=== PATIENT | female | born 1940 | race Caucasian/White ===

== ENCOUNTER → 2016-05-14 | Outpatient (CLI) | payer MEDICARE ==
[2016-05-14 13:53] LABS: ALANINE AMINOTRANSFERASE 57 U/L (9-52); ALKALINE PHOSPHATASE 132 U/L (38-126); ANION GAP 14 (5-19); ASPARTATE AMINO TRANSFERASE 55 U/L (14-36); BILIRUBIN,TOTAL 0.7 mg/dL (0.2-1.3); BLOOD UREA NITROGEN 11 mg/dL (7-20); CALCIUM 9.6 mg/dL (8.4-10.2); CARBON DIOXIDE 26 mmol/L (22-30); CHLORIDE 101 mmol/L (98-107); CREATININE RESULT 0.91 mg/dL (0.52-1.25); Direct HDL 35 mg/dL (>40); GLUCOSE 149 mg/dL (75-110); POTASSIUM 4.2 mmol/L (3.6-5.0); SODIUM 140.5 mmol/L (137-145); TOTAL PROTEIN 7.7 g/dL (6.3-8.2); TRIGLYCERIDES 207 mg/dL (<150)
[2016-05-14 14:04] LABS: DIRECT LDL 158 mg/dL (<100)
[2016-05-14 14:06] LABS: VLDL CHOLESTEROL 41.4 mg/dL (10-31)
== END ==
LOC: OD 12:48
PROVIDERS: ATTEND Nurse Practitioner
DX: K21.9 Gastro-esophageal reflux disease without esophagitis (principal); I10 Essential (primary) hypertension; E78.5 Hyperlipidemia, unspecified; E11.9 Type 2 diabetes mellitus without complications; Z79.899 Other long term (current) drug therapy
CPT/HCPCS: 36415; 80053; 80061; 83036

== ENCOUNTER 2018-03-29 11:25 | Inpatient (IN) | payer MEDICARE ==
--- NOTE | 2018-03-29 11:31 | ER Document Report ---
ED Medical Screen (RME) - General Stated Complaint: STROKE LIKE SYMPTOMS Time Seen by Provider: 03/29/18 11:28 Notes: 78-year-old female patient brought the emergency room for mental status changes with slurred speech that started 2 days ago. I have greeted and performed a rapid initial assessment of this patient. A comprehensive ED assessment and evaluation of the patient, analysis of test results and completion of the medical decision making process will be conducted by additional ED providers. TRAVEL OUTSIDE OF THE [place] IN LAST 30 DAYS: No Doctor's Discharge - Discharge Referrals: BEBE STEEN NP [Primary Care Provider] - Follow up as needed
--- NOTE | 2018-03-29 12:16 | RADIOLOGY REPORT (SQ) ---
EXAM DESCRIPTION: CT HEAD WITHOUT COMPLETED DATE/TIME: 03/29/2018 11:58 am REASON FOR STUDY: Altered mental status, COMPARISON: 10/15/2008. TECHNIQUE: Axial images acquired through the brain without intravenous contrast. Images reviewed wi th bone, brain and subdural windows. Additional sagittal and coronal reconstructions were generated. Images stored on PACS. All CT scanners at this facility use dose modulation, iterative reconstruction, and/or weight based d osing when appropriate to reduce radiation dose to as low as reasonably achievable (ALARA). [facility]: Dose Right [facility]: CareDose [facility]: Dose Right [facility]: Teradose 4D [facility]: Smart hoozin RADIATION DOSE: CT Rad equipment meets quality standard of care and radiation dose reduction techniq ues were employed. CTDIvol: 53.2 mGy. DLP: 1017 mGy-cm. mGy. LIMITATIONS: None. FINDINGS: VENTRICLES: Prominent. CEREBRUM: No masses. No hemorrhage. No midline shift. Areas of low density in the white matter mos t likely due to chronic micro-vascular ischemic change. No evidence for acute infarction. CEREBELLUM: No masses. No hemorrhage. No alteration of density. No evidence for acute infarction. EXTRAAXIAL SPACES: Mild age-related involutional change. No fluid collections. No masses. ORBITS AND GLOBE: No intra- or extraconal masses. Normal contour of globe without masses. CALVARIUM: No fracture. PARANASAL SINUSES: No fluid or mucosal thickening. SOFT TISSUES: No mass or hematoma. OTHER: No other significant finding. IMPRESSION: MILD CHRONIC CHANGES OF ATROPHY AND MICROVASCULAR ISCHEMIA. NO ACUTE PROCESS. EVIDENCE OF ACUTE STROKE: NO. COMMENT: Pertinent positive or negative findings of the imaging study reported as a CRITICAL EXAM becky SOLIMAN MD at12:08 on 03/29/2018. Category of Critical Exam: Stroke protocol. TECHNICAL DOCUMENTATION: JOB ID: [id number] Quality ID # [id number]: Final reports with documentation of one or more dose reduction techniques (e.g., Au tomated exposure control, adjustment of the mA and/or kV according to patient size, use of iterative reconstruction technique) 2010 [employer]- All Rights Reserved Reading location - IP/workstation name: [email or web address]
[2018-03-29 12:37] LABS: ABSOLUTE LYMPHOCYTES (AUTO) 1.1 10^3/uL (0.5-4.7); ABSOLUTE MONOCYTES (AUTO) 1.2 10^3/uL (0.1-1.4); ABSOLUTE NEUT (AUTO) 9.4 10^3/uL (1.7-8.2); EOSINOPHILS % (AUTO) 0.1 % (0-6); HEMOGLOBIN 12.6 g/dL (12.0-15.5); LYMPHOCYTES % (AUTO) 9.2 % (13-45); MEAN CORPUSCULAR HEMOGLOBIN 29.6 pg (27.0-33.4); MEAN CORPUSCULAR VOLUME 82 fl (80-97); MONOCYTES % (AUTO) 10.6 % (3-13); PLATELET COUNT 300 10^3/uL (150-450); RED BLOOD COUNT 4.25 10^6/uL (3.72-5.28); RED CELL DISTRIBUTION WIDTH 13.9 % (11.5-14.0); SEGMENTED NEUTROPHILS % (AUTO) 80.1 % (42-78); TOTAL CELLS COUNTED % (AUTO) 100 %; WHITE BLOOD COUNT 11.7 10^3/uL (4.0-10.5)
[2018-03-29 12:42] LABS: VENOUS BLOOD BASE EXCESS 1.2 mmol/L; VENOUS BLOOD HCO3 25.6 mmol/L (20-32); VENOUS BLOOD PH 7.42 (7.30-7.42)
--- NOTE | 2018-03-29 12:53 | EKG REPORT ---
SEVERITY:- BORDERLINE ECG - SINUS RHYTHM LEFT AXIS DEVIATION BORDERLINE T ABNORMALITIES, DIFFUSE LEADS : Confirmed by: Watson Waddell MD 29-Mar-2018 12:52:32
[2018-03-29 13:03] LABS: ALANINE AMINOTRANSFERASE 28 U/L (9-52); ALBUMIN 3.9 g/dL (3.5-5.0); ALKALINE PHOSPHATASE 102 U/L (38-126); ASPARTATE AMINO TRANSFERASE 57 U/L (14-36); BILIRUBIN,DIRECT 0.3 mg/dL (0.0-0.4); BILIRUBIN,TOTAL 1.3 mg/dL (0.2-1.3); BLOOD UREA NITROGEN 9 mg/dL (7-20); CALCIUM 8.7 mg/dL (8.4-10.2); CARBON DIOXIDE 26 mmol/L (22-30); CHLORIDE 74 mmol/L (98-107); CREATINE KINASE 540 U/L (30-135); GLUCOSE 91 mg/dL (75-110); POTASSIUM 4.4 mmol/L (3.6-5.0); TOTAL PROTEIN 7.8 g/dL (6.3-8.2)
[2018-03-29 13:04] LABS: ANION GAP 12 (5-19)
--- NOTE | 2018-03-29 13:05 | RADIOLOGY REPORT (SQ) ---
EXAM DESCRIPTION: CHEST SINGLE VIEW COMPLETED DATE/TIME: 03/29/2018 12:43 pm REASON FOR STUDY: query pneumonia COMPARISON: Chest films 09/02/2007, 01/22/2010 EXAM PARAMETERS: NUMBER OF VIEWS: One view. TECHNIQUE: Single frontal radiographic view of the chest acquired. RADIATION DOSE: NA LIMITATIONS: Obese patient, AP portable technique FINDINGS: LUNGS AND PLEURA: No opacities, masses or pneumothorax. No pleural effusion. MEDIASTINUM AND HILAR STRUCTURES: No masses. Contour normal. HEART AND VASCULAR STRUCTURES: Old sternotomy for CABG. Mild cardiomegaly BONES: No acute findings. HARDWARE: None in the chest. OTHER: No other significant finding. IMPRESSION: Old sternotomy for CABG. Mild cardiomegaly. No acute infiltrates TECHNICAL DOCUMENTATION: JOB ID: [id number] [employer]- All Rights Reserved Reading location - IP/workstation name: [email or web address]
[2018-03-29 13:17] LABS: CREATINE KINASE MB 6.05 ng/mL (<4.55)
[2018-03-29 13:18] LABS: TROPONIN I < 0.012 ng/mL
--- NOTE | 2018-03-29 13:42 | ER Document Report ---
ED General - General Chief Complaint: S/S of Possible Stroke Stated Complaint: STROKE LIKE SYMPTOMS Time Seen by Provider: 03/29/18 11:28 Mode of Arrival: Medic Information source: Patient, Relative Cannot obtain history due to: Altered mental status TRAVEL OUTSIDE OF THE [place] 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 She was recently diagnosed with atrial fibrillation and started on Eliquis as well as metoprolol. No other recent obvious injuries they do note that she does have some cough chronically. - Related Data Allergies/Adverse Reactions: No Known Allergies Allergy (Unverified 03/29/18 15:39) Past Medical History - General Information source: Patient, Relative - Social History Smoking Status: Never Smoker Family History: None Review of Systems - Review of Systems -: Yes All other systems reviewed and negative Physical Exam - Vital signs Vitals: Resp BP Pulse Ox 17 153/90 H 97 03/29/18 12:24 03/29/18 12:24 03/29/18 12:24 - General General appearance: Lethargic In distress: Mild - HEENT Head: Normocephalic Eyes: Normal Conjunctiva: Normal Cornea: Normal Extraocular movements intact: Yes Eyelashes: Normal Pupils: PERRL - Respiratory Respiratory status: Tachypnea Chest status: Nontender Breath sounds: Rhonchi Chest palpation: Normal - Cardiovascular Rhythm: Irregularly irregular Heart sounds: Normal auscultation - Abdominal Inspection: Morbidly Obese Distension: No distension Tenderness: Nontender - Back Back: Normal - Extremities General upper extremity: Normal inspection, Nontender, Normal strength, Normal temperature General lower extremity: Other - Right-sided above-knee amputation - Neurological Cognition: Confused Orientation: Disoriented to person, Disoriented to place Marlene Coma Scale Eye Opening: To Voice Marlene Coma Scale Verbal: Confused Marlene Coma Scale Motor: Obeys Commands Marlene Coma Scale Total: 13 Speech: Dysarthria Cranial nerves: Normal Motor strength normal: LUE, RUE - Psychological Associated symptoms: Flat affect Course - Re-evaluation Re-evalutation: 03/29/18 20:09 78-year-old female who presents for evaluation of altered mental status in the setting of multiple medical comorbidities. She is can a nonfocal neurologic examination though she is somnolent with a bizarre respiratory pattern in the emergency department. She will undergo broad workup including chemistry, count, VBG, chest x-ray urinalysis. Plan for reassessment and monitoring. Patient currently does not warrant any more aggressive intervention such as but not limited to intubation or external cardiac pacing. She was taken emergently to CAT scan, CT is nondiagnostic does not show any acute infarct. Upon return to the emergency department it is noted that this patient's sodium is 112, will add on urinalysis urine electrolytes urine creatinine. Plan for admission of this patient for ongoing monitoring and management. Patient will be monitored emergency department have q. 2-hour sodium rechecks. Deferred administration of any aggressive hypertonic solutions until hospitalist evaluate the patient for ongoing management will plan for this patient undergo admission to the intensive care unit for further investigation and evaluation. While in the emergency department the patient did demonstrate some worsening anxiety as such we will plan for administration of 0.5 mg of Ativan in the emergency department. - Vital Signs Vital signs: Temp Pulse Resp BP Pulse Ox 98.8 F 72 13 162/78 H 94 03/29/18 18:12 03/29/18 18:12 03/29/18 19:01 03/29/18 19:01 03/29/18 19:01 - Laboratory Result Diagrams: 03/29/18 12:16 03/29/18 18:39 Laboratory results interpreted by me: 03/29/18 03/29/18 03/29/18 12:16 12:16 12:16 WBC 11.7 H Hct 35.0 L Seg Neutrophils % 80.1 H Lymphocytes % 9.2 L Absolute Neutrophils 9.4 H Sodium 112.0 L* Chloride 74 L AST 57 H Ammonia Creatine Kinase 540 H CK-MB (CK-2) 6.05 H 03/29/18 12:16 WBC Hct Seg Neutrophils % Lymphocytes % Absolute Neutrophils Sodium Chloride AST Ammonia < 8.7 L Creatine Kinase CK-MB (CK-2) Critical Care Note - Critical Care Note Total time excluding time spent on procedures (mins): 35 Discharge - Discharge Clinical Impression: Hyponatremia, Confusion, Weakness Condition: Stable Disposition: ADMITTED INPATIENT Admitting Provider: Hospitalist Unit Admitted: ICU
[2018-03-29 15:04] LABS: ANION GAP 13 (5-19); BLOOD UREA NITROGEN 9 mg/dL (7-20); CALCIUM 8.6 mg/dL (8.4-10.2); CARBON DIOXIDE 25 mmol/L (22-30); CHLORIDE 75 mmol/L (98-107); GLUCOSE 83 mg/dL (75-110); POTASSIUM 4.3 mmol/L (3.6-5.0)
[2018-03-29] MEDS ORDERED: SODIUM CHLORIDE 3% 100 ML IV ONE ×2 (15:06→22:00)
[2018-03-29 15:17] LABS: SODIUM 112.7 mmol/L (137-145)
[2018-03-29] MEDS ORDERED: LORAZEPAM INJ 2 MG/1 ML VIAL IV ONE ×2 (15:37→19:56)
[2018-03-29 15:49] LABS: APPEARANCE,URINE CLEAR; BILIRUBIN,URINE NEGATIVE (NEGATIVE); COLOR,URINE YELLOW; GLUCOSE, URINE NEGATIVE (NEGATIVE); KETONES,URINE TRACE mg/dL (NEGATIVE); LEUKOCYTE ESTERASE,URINE NEGATIVE (NEGATIVE); NITRITE,URINE NEGATIVE (NEGATIVE); PROTEIN,URINE 100 mg/dL (NEGATIVE); URINE SPECIFIC GRAVITY 1.008; UROBILINOGEN,URINE NEGATIVE mg/dL (<2.0)
--- NOTE | 2018-03-29 15:57 | PDOC H&P ---
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 and daughter says patient was admitted in [facility] the other week for a new onset AFib and was started on Eliquis, diltiazem and lopressor. Both ays they were not aware of any sodium abnormality that time. Patient was apparently well until the last 3-4 days when she started complaining of progressive weakness and eventually was not able to stand and has been saying "can't do it" , "can't stand". She has been progressively getting weak hence was brought to the ER. says she may have had a few loose stools this week. Upon encounter in the ER, patient is noted have hearing difficulty but she is oriented to person, place, time and situation but is moaning "help me God". She does feel generally weak. Past Medical History Cardiac Medical History: Reports: Myocardial Infarction - 3 bypasses 2 janet 1 artery 2010 Endocrine Medical History: Reports: Diabetes Mellitus Type 2 Social History Smoking Status: Never Smoker Family History Parental Family History Reviewed: Yes - no premature CAD Children Family History Reviewed: No Sibling(s) Family History Reviewed.: No Medication/Allergy Home Medications: Aspirin [Ecotrin] 81 mg PO DAILY 03/29/18 Cholecalciferol (Vitamin D3) [Vitamin D3 1000 Unit Tablet] 1,000 unit PO DAILY 03/29/18 Citalopram Hydrobromide [Celexa] 1 tab PO DAILY 03/29/18 Diltiazem HCl [Diltiazem ER] 60 mg PO Q6H 03/29/18 Esomeprazole Magnesium [Nexium 24Hr] 20 mg PO DAILY 03/29/18 Garlic 1,000 mg PO DAILY 03/29/18 Glimepiride [Amaryl 4 mg Tablet] 4 mg PO DAILY 03/29/18 Imipramine HCl [Tofranil 25 Mg Tablet] 25 mg PO DAILY 03/29/18 Levothyroxine Sodium 75 mcg PO DAILY 03/29/18 Lorazepam [Ativan] 1 mg PO BIDP PRN 03/29/18 Metoprolol Succinate [Toprol Xl] 75 mg PO BID 03/29/18 Multivitamin [Daily Multiple Vitamin] 1 tab PO DAILY 03/29/18 Pravastatin Sodium [Pravachol] 40 mg PO DAILY 03/29/18 Tamsulosin HCl [Flomax] 0.4 mg PO DAILY 03/29/18 Allergies/Adverse Reactions: No Known Allergies Allergy (Unverified 03/29/18 15:39) Review of Systems All systems: reviewed and no additional remarkable complaints except as stated - as mentioned in HPI Physical Exam Vital Signs: Temp Pulse Resp BP Pulse Ox 17 139/74 H 93 03/29/18 13:05 03/29/18 13:05 03/29/18 13:05 General appearance: PRESENT: no acute distress, well-developed, well-nourished Head exam: PRESENT: atraumatic, normocephalic Eye exam: PRESENT: conjunctiva pink, EOMI, PERRLA. ABSENT: scleral icterus Mouth exam: PRESENT: moist, tongue midline Neck exam: ABSENT: carotid bruit, JVD, lymphadenopathy, thyromegaly Respiratory exam: PRESENT: clear to auscultation elio. ABSENT: rales, rhonchi, wheezes Cardiovascular exam: PRESENT: RRR. ABSENT: diastolic murmur, rubs, systolic murmur Pulses: PRESENT: normal dorsalis pedis pul GI/Abdominal exam: PRESENT: normal bowel sounds, soft. ABSENT: distended, guarding, mass, organolmegaly, rebound, tenderness Rectal exam: PRESENT: deferred Extremities exam: PRESENT: +2 edema Neurological exam: PRESENT: alert, awake, oriented to person, oriented to place , oriented to time Results Laboratory Results: 03/29/18 14:31 03/29/18 03/29/18 14:31 14:31 Sodium 112.7 L* Potassium 4.3 Chloride 75 L Carbon Dioxide 25 Anion Gap 13 BUN 9 Creatinine 0.58 Est GFR ( Amer) > 60 Est GFR (Non-Af Amer) > 60 Glucose 83 Serum Osmolality 223 L Calcium 8.6 Impressions: Head CT 03/29/18 11:30 IMPRESSION: MILD CHRONIC CHANGES OF ATROPHY AND MICROVASCULAR ISCHEMIA. NO ACUTE PROCESS. EVIDENCE OF ACUTE STROKE: NO. Chest X-Ray 03/29/18 12:20 IMPRESSION: Old sternotomy for CABG. Mild cardiomegaly. No acute infiltrates Assessment & Plan - Diagnosis (1) Acute hyponatremia Is this a current diagnosis for this admission?: Yes Plan: Na is severely low at 112.Will check urine and serum osm and urine Na. She appe Discussed with nephrology. Will give 100 cc of hypertonic saline over 4 hrs. Will repeat BMP and continue to monitor Na q4hr. (2) Paroxysmal atrial fibrillation Is this a current diagnosis for this admission?: Yes Plan: Per family, patient was recently diagnosed with AFib and was started on Eliquis , diltiazem and lopressor. Awaiting for pharmacy to verify Eliquis. - Time Time Spent: 30 to 50 Minutes
[2018-03-29 16:07] LABS: URINE CREATININE 38.7 mg/dL (15-278)
[2018-03-29] MEDS ORDERED: NORMAL SALINE 1000 ML 1,000 ML IV PRN (17:49)
--- NOTE | 2018-03-29 17:53 | PDOC CONSULTATION ---
Consultation Consult Date: 03/29/18 Consult reason:: Acute hyponatremia and weakness. History of Present Illness Admission Date/PCP: 03/29/18 13:49 BEBE STEEN NP History of Present Illness: CHRISTELLE RIBERA is a 78 year old female with a h/o DM,Hypertension,CAD, recent diagnosis of A.fib was admitted with progressive weakness over the last 1 week.Patient is somewhat disoriented and very hard of hearing and so history was gathered from the who is at the bedside. No c/o any focal deficits, chest pains, headaches,dyspnea,diarrhea, fever or chills.Initial labs done in the ER showed a Na of 112. Dr Morgan the hospitalist called and discussed the case with me and she was started on 3% saline around 4 PM. She is in no acute distress as I see her in the ER. However she seems confused and disoriented but is hard to connect with her because she is so hard of hearing. However her seems to be able to connect with her. She is asking for some water.Labs were discussed at length with her . Past Medical History Cardiac Medical History: Reports: Hypertension-primary, Myocardial Infarction - 3 bypasses 2 janet 1 artery 2009 Endocrine Medical History: Reports: Diabetes Mellitus Type 2 Social History Smoking Status: Never Smoker Family History Parental Family History Reviewed: Yes - negative for CKD Children Family History Reviewed: No Sibling(s) Family History Reviewed.: No Medication/Allergy Home Medications: Aspirin [Ecotrin] 81 mg PO DAILY 03/29/18 Cholecalciferol (Vitamin D3) [Vitamin D3 1000 Unit Tablet] 1,000 unit PO DAILY 03/29/18 Citalopram Hydrobromide [Celexa] 1 tab PO DAILY 03/29/18 Diltiazem HCl [Diltiazem ER] 60 mg PO Q6H 03/29/18 Esomeprazole Magnesium [Nexium 24Hr] 20 mg PO DAILY 03/29/18 Garlic 1,000 mg PO DAILY 03/29/18 Glimepiride [Amaryl 4 mg Tablet] 4 mg PO DAILY 03/29/18 Imipramine HCl [Tofranil 25 Mg Tablet] 25 mg PO DAILY 03/29/18 Levothyroxine Sodium 75 mcg PO DAILY 03/29/18 Lorazepam [Ativan] 1 mg PO BIDP PRN 03/29/18 Metoprolol Succinate [Toprol Xl] 75 mg PO BID 03/29/18 Multivitamin [Daily Multiple Vitamin] 1 tab PO DAILY 03/29/18 Pravastatin Sodium [Pravachol] 40 mg PO DAILY 03/29/18 Tamsulosin HCl [Flomax] 0.4 mg PO DAILY 03/29/18 Allergies/Adverse Reactions: No Known Allergies Allergy (Unverified 03/29/18 15:39) Review of Systems Constitutional: PRESENT: anorexia, fatigue, weakness. ABSENT: chills, fever(s) , headache(s), night sweats Ears: PRESENT: hearing changes Cardiovascular: PRESENT: as per HPI, edema - of left leg as she has a AKA of her right.. ABSENT: chest pain, dyspnea on exertion Respiratory: ABSENT: dyspnea, hemoptysis Gastrointestinal: ABSENT: abdominal pain, diarrhea, dysphagia, heartburn, hematemesis, nausea Genitourinary: ABSENT: dysuria, hematuria Neurological: PRESENT: confusion. ABSENT: focal weakness Hematologic/Lymphatic: ABSENT: easy bruising, lymphadenopathy Physical Exam Vital Signs: Temp Pulse Resp BP Pulse Ox 16 169/91 H 96 03/29/18 16:01 03/29/18 16:01 03/29/18 16:01 General appearance: PRESENT: no acute distress, obese Mouth exam: PRESENT: neck supple. ABSENT: moist Neck exam: ABSENT: lymphadenopathy, meningismus, tenderness, thyromegaly Respiratory exam: PRESENT: clear to auscultation elio. ABSENT: crackles Cardiovascular exam: PRESENT: +S1, +S2, systolic murmur GI/Abdominal exam: PRESENT: normal bowel sounds, soft. ABSENT: organomegaly, tenderness Neurological exam: PRESENT: alert, awake, oriented to person Psychiatric exam: PRESENT: anxious Skin exam: PRESENT: dry, normal color. ABSENT: erythema, rash Results Laboratory Results: 03/29/18 14:31 03/29/18 03/29/18 03/29/18 14:31 14:31 15:01 Sodium 112.7 L* Potassium 4.3 Chloride 75 L Carbon Dioxide 25 Anion Gap 13 BUN 9 Creatinine 0.58 Est GFR ( Amer) > 60 Est GFR (Non-Af Amer) > 60 Glucose 83 Serum Osmolality 223 L Calcium 8.6 Urine Color YELLOW Urine Appearance CLEAR Urine pH 7.0 Ur Specific [place] 1.008 Urine Protein 100 H Urine Glucose (UA) NEGATIVE Urine Ketones TRACE H Urine Blood MODERATE H Urine Nitrite NEGATIVE Ur Leukocyte Esterase NEGATIVE Urine WBC (Auto) 5 Urine RBC (Auto) 46 Urine Osmolality 03/29/18 15:01 Sodium Potassium Chloride Carbon Dioxide Anion Gap BUN Creatinine Est GFR ( Amer) Est GFR (Non-Af Amer) Glucose Serum Osmolality Calcium Urine Color Urine Appearance Urine pH Ur Specific [place] Urine Protein Urine Glucose (UA) Urine Ketones Urine Blood Urine Nitrite Ur Leukocyte Esterase Urine WBC (Auto) Urine RBC (Auto) Urine Osmolality 259 L Impressions: Head CT 03/29/18 11:30 IMPRESSION: MILD CHRONIC CHANGES OF ATROPHY AND MICROVASCULAR ISCHEMIA. NO ACUTE PROCESS. EVIDENCE OF ACUTE STROKE: NO. Chest X-Ray 03/29/18 12:20 IMPRESSION: Old sternotomy for CABG. Mild cardiomegaly. No acute infiltrates Assessment & Plan - Diagnosis (1) Acute hyponatremia Is this a current diagnosis for this admission?: Yes Plan: Combination of SIADH and dehydration. Likely culprits for SIADH could be her try cyclic's and SSRIs. Continue 3% saline until we get the sodium to high teens. Put on fluid restriction.Will need close monitoring given the complications of hyponatremia and rapid correction. (2) Diabetes Plan: Poorly controlled. Advised tight control. (3) Confusion Plan: Likely from her hyponatremia. (4) Weakness Plan: Multifactorial. Hyponatremia playing a major factor.
[2018-03-29 19:07] LABS: ANION GAP 13 (5-19); BLOOD UREA NITROGEN 8 mg/dL (7-20); CALCIUM 8.5 mg/dL (8.4-10.2); CARBON DIOXIDE 25 mmol/L (22-30); CHLORIDE 76 mmol/L (98-107); GLUCOSE 75 mg/dL (75-110); POTASSIUM 3.9 mmol/L (3.6-5.0)
[2018-03-29 19:23] LABS: SODIUM 113.7 mmol/L (137-145)
[2018-03-29] MEDS: FUROSEMIDE INJ/PF 20 MG/2 ML SDV IV SCH ×2 (19:49→22:31)
[2018-03-29 20:42] LABS: ANION GAP 12 (5-19); BLOOD UREA NITROGEN 8 mg/dL (7-20); CALCIUM 8.3 mg/dL (8.4-10.2); CARBON DIOXIDE 25 mmol/L (22-30); CHLORIDE 77 mmol/L (98-107); GLUCOSE 73 mg/dL (75-110); POTASSIUM 3.7 mmol/L (3.6-5.0)
[2018-03-29 20:47] LABS: SODIUM 114.4 mmol/L (137-145)
[2018-03-29] MEDS ORDERED: HEPARIN SOD (PORCINE) 5,000 UNIT/ML 1 ML SYRINGE SUBCUT SCH (22:00)
[2018-03-29] MEDS ORDERED: INSULIN LISPRO 100 UNIT/ML 3 ML VIAL SUBCUT PRN (22:01)
[2018-03-29] MEDS ORDERED: GLUCAGON,HUMAN RECOMB 1 MG INJ IM PRN (22:01)
[2018-03-29] MEDS ORDERED: DEXTROSE 40% GEL 15 GM TUBE PO PRN ×2 (22:01)
[2018-03-29] MEDS ORDERED: DEXTROSE 50%-WATER 25 GM/50 ML DISP.SYRIN IV PRN ×2 (22:01)
[2018-03-30] MEDS: DILTIAZEM HCL 30 MG TABLET PO SCH ×3 (03:15→12:01)
[2018-03-30] MEDS ORDERED: SODIUM CHLORIDE 3% 500 ML IV ONE (03:45)
[2018-03-30 05:03] LABS: ANION GAP 13 (5-19); BLOOD UREA NITROGEN 9 mg/dL (7-20); CALCIUM 8.2 mg/dL (8.4-10.2); CARBON DIOXIDE 24 mmol/L (22-30); CHLORIDE 81 mmol/L (98-107); GLUCOSE 80 mg/dL (75-110); POTASSIUM 3.2 mmol/L (3.6-5.0)
[2018-03-30 05:05] LABS: SODIUM 117.9 mmol/L (137-145)
[2018-03-30] MEDS: FUROSEMIDE INJ/PF 20 MG/2 ML SDV IV SCH (06:18)
[2018-03-30] MEDS: POTASSIUM CHLORIDE 20 MEQ/50 ML RTU IV SCH ×2 (06:19→09:30)
[2018-03-30] MEDS ORDERED: LEVOTHYROXINE SODIUM 0.075 MG TABLET PO SCH (10:00)
[2018-03-30] MEDS ORDERED: METOPROLOL SUCCINATE 25 MG TAB.SR.24H PO SCH (10:00)
[2018-03-30] MEDS: APIXABAN 5 MG TABLET PO SCH ×2 (11:58→19:44)
[2018-03-30] MEDS: ASPIRIN 81 MG TABLET, ENT COATED PO SCH (11:58)
[2018-03-30] MEDS: LORAZEPAM 1 MG TABLET PO PRN (13:30)
[2018-03-30] MEDS ORDERED: NORMAL SALINE 1000 ML 1,000 ML IV PRN (13:50)
--- NOTE | 2018-03-30 14:36 | PDOC PROGRESS REPORT ---
Subjective Progress Note for:: 03/30/18 Reason For Visit: Patient seen in the ICU today. is by the bedside. He is happy with the progress she has made overnight. Patient is more awake and alert and oriented. She is more responsive to questions.She denies any history of headaches, focal deficits, chest pain or shortness of breath. Labs and medications were reviewed with the . Latest sodium is 118. Physical Exam Vital Signs: Temp Pulse Resp BP Pulse Ox 98.4 F 95 11 L 163/69 H 96 03/30/18 12:30 03/30/18 12:00 03/30/18 12:30 03/30/18 12:28 03/30/18 12:30 Intake & Output 03/29/18 03/30/18 03/31/18 06:59 06:59 06:59 Intake Total 200 50 Output Total 2225 2024 Balance -2024 Weight 87.9 kg General appearance: PRESENT: no acute distress Respiratory exam: PRESENT: clear to auscultation elio. ABSENT: crackles Cardiovascular exam: PRESENT: +S1, +S2, systolic murmur GI/Abdominal exam: PRESENT: normal bowel sounds, soft. ABSENT: organomegaly, tenderness Extremities exam: ABSENT: pedal edema Neurological exam: PRESENT: alert, awake, oriented to person, oriented to place Psychiatric exam: PRESENT: anxious Skin exam: ABSENT: erythema, mottled, rash Results Laboratory Results: 03/30/18 12:02 03/29/18 03/29/18 03/29/18 14:31 14:31 15:01 Sodium 112.7 L* Potassium 4.3 Chloride 75 L Carbon Dioxide 25 Anion Gap 13 BUN 9 Creatinine 0.58 Est GFR ( Amer) > 60 Est GFR (Non-Af Amer) > 60 Glucose 83 Serum Osmolality 223 L Calcium 8.6 TSH Urine Color YELLOW Urine Appearance CLEAR Urine pH 7.0 Ur Specific [place] 1.008 Urine Protein 100 H Urine Glucose (UA) NEGATIVE Urine Ketones TRACE H Urine Blood MODERATE H Urine Nitrite NEGATIVE Ur Leukocyte Esterase NEGATIVE Urine WBC (Auto) 5 Urine RBC (Auto) 46 Urine Osmolality 03/29/18 03/29/18 03/29/18 15:01 18:39 18:39 Sodium 113.7 L* Potassium 3.9 Chloride 76 L Carbon Dioxide 25 Anion Gap 13 BUN 8 Creatinine 0.59 Est GFR ( Amer) > 60 Est GFR (Non-Af Amer) > 60 Glucose 75 Serum Osmolality Calcium 8.5 TSH 0.33 L Urine Color Urine Appearance Urine pH Ur Specific [place] Urine Protein Urine Glucose (UA) Urine Ketones Urine Blood Urine Nitrite Ur Leukocyte Esterase Urine WBC (Auto) Urine RBC (Auto) Urine Osmolality 259 L 03/29/18 03/30/18 03/30/18 20:08 02:12 03:22 Sodium 114.4 L* 118.2 L* 117.9 L* Potassium 3.7 3.2 L Chloride 77 L 81 L Carbon Dioxide 25 24 Anion Gap 12 13 BUN 8 9 Creatinine 0.57 0.59 Est GFR ( Amer) > 60 > 60 Est GFR (Non-Af Amer) > 60 > 60 Glucose 73 L 80 Serum Osmolality Calcium 8.3 L 8.2 L TSH Urine Color Urine Appearance Urine pH Ur Specific [place] Urine Protein Urine Glucose (UA) Urine Ketones Urine Blood Urine Nitrite Ur Leukocyte Esterase Urine WBC (Auto) Urine RBC (Auto) Urine Osmolality 03/30/18 03/30/18 07:49 12:02 Sodium 122.1 L 123.6 L Potassium Chloride Carbon Dioxide Anion Gap BUN Creatinine Est GFR ( Amer) Est GFR (Non-Af Amer) Glucose Serum Osmolality Calcium TSH Urine Color Urine Appearance Urine pH Ur Specific [place] Urine Protein Urine Glucose (UA) Urine Ketones Urine Blood Urine Nitrite Ur Leukocyte Esterase Urine WBC (Auto) Urine RBC (Auto) Urine Osmolality Impressions: Head CT 03/29/18 11:30 IMPRESSION: MILD CHRONIC CHANGES OF ATROPHY AND MICROVASCULAR ISCHEMIA. NO ACUTE PROCESS. EVIDENCE OF ACUTE STROKE: NO. Chest X-Ray 03/29/18 12:20 IMPRESSION: Old sternotomy for CABG. Mild cardiomegaly. No acute infiltrates Assessment & Plan - Diagnosis (1) Acute hyponatremia Is this a current diagnosis for this admission?: Yes Plan: Improving nicely. Continue present lines of management. She is off to 3%. Is clinically and symptomatically better.Would avoid the try cyclic's and SSRIs for the moment. Will have to reintroduce that if needed very cautiously with close monitoring as an outpatient. (2) Diabetes Plan: Advised for tight control. (3) Confusion Plan: Much improved. Parallel to her hyponatremia. (4) Weakness Plan: Clinically improved. Continue present lines of management.
[2018-03-30] MEDS: SODIUM BICARBONATE 650 MG TABLET PO SCH ×2 (15:11→19:43)
[2018-03-30] MEDS ORDERED: INSULIN LISPRO 100 UNIT/ML 3 ML VIAL SUBCUT PRN (16:00)
[2018-03-30] MEDS ORDERED: FUROSEMIDE INJ/PF 20 MG/2 ML SDV IV SCH (18:00)
[2018-03-30] MEDS: DILTIAZEM HCL 240 MG CAPSULE.CR PO SCH (19:43)
[2018-03-30] MEDS: ATORVASTATIN CALCIUM 10 MG TABLET PO SCH (21:23)
--- NOTE | 2018-03-30 22:43 | PDOC PROGRESS REPORT ---
Subjective Progress Note for:: 03/30/18 Subjective:: CHRISTELLE RIBERA is a 78 year old female who was brought to the emergency room by her family due to weakness and confusion. Dayanna noticed that over the 3-4 days prior to her admission she was becoming progressively weak and eventually was unable to stand. She has not been eating or drinking well and she may have had some diarrhea during the several days prior to her admission. In the emergency room she was disoriented and unable to participate in her medical care. In the ER her evaluation was remarkable for a severe hyponatremia with a sodium of 113.7. She was noted to have an unremarkable head CT scan showing no acute changes and she was subsequently admitted to the ICU for further evaluation and treatment. 03/30/2018: Patient is doing much better today she is awake and much more alert she is talking and hungry and would like to have more food to eat. She is having no difficulty with elimination and she is able to identify persons in the room with only minimal confusion according to the report of her daughter. Daughter feels that her mother is dramatically improved back to 85 or 90% of her baseline status. Her serum sodium has increased to greater than 120. Reason For Visit: SEVERE HYPONATREMIA Physical Exam Vital Signs: Temp Pulse Resp BP Pulse Ox 98.8 F 57 L 13 136/59 H 95 03/30/18 14:30 03/30/18 14:00 03/30/18 14:30 03/30/18 14:28 03/30/18 14:30 Intake & Output 03/28/18 03/29/18 03/30/18 23:59 23:59 23:59 Intake Total 100 150 Output Total 1200 3275 Balance -1100 -3125 Weight 87.9 kg 87.9 kg General appearance: PRESENT: no acute distress, cooperative, obese Head exam: PRESENT: atraumatic, normocephalic Eye exam: PRESENT: conjunctiva pink, EOMI Ear exam: PRESENT: normal external ear exam. ABSENT: drainage Mouth exam: PRESENT: neck supple, tongue midline, other - All mucosa moist and intact Teeth exam: PRESENT: poor dentation Neck exam: ABSENT: JVD, tracheal deviation Respiratory exam: PRESENT: clear to auscultation elio, symmetrical, unlabored Cardiovascular exam: PRESENT: RRR. ABSENT: clicks, gallop, rubs Vascular exam: PRESENT: normal capillary refill. ABSENT: pallor GI/Abdominal exam: PRESENT: normal bowel sounds, soft Rectal exam: PRESENT: deferred Extremities exam: ABSENT: joint swelling, pedal edema Musculoskeletal exam: ABSENT: deformity, dislocation Neurological exam: PRESENT: alert, oriented to person, oriented to place, oriented to time Psychiatric exam: PRESENT: appropriate affect, normal mood Skin exam: PRESENT: dry, intact, warm. ABSENT: jaundice, rash, urticaria Results Laboratory Results: 03/30/18 16:26 03/29/18 03/29/18 03/29/18 18:39 18:39 20:08 Sodium 113.7 L* 114.4 L* Potassium 3.9 3.7 Chloride 76 L 77 L Carbon Dioxide 25 25 Anion Gap 13 12 BUN 8 8 Creatinine 0.59 0.57 Est GFR ( Amer) > 60 > 60 Est GFR (Non-Af Amer) > 60 > 60 Glucose 75 73 L Calcium 8.5 8.3 L TSH 0.33 L 03/30/18 03/30/18 03/30/18 02:12 03:22 07:49 Sodium 118.2 L* 117.9 L* 122.1 L Potassium 3.2 L Chloride 81 L Carbon Dioxide 24 Anion Gap 13 BUN 9 Creatinine 0.59 Est GFR ( Amer) > 60 Est GFR (Non-Af Amer) > 60 Glucose 80 Calcium 8.2 L TSH 03/30/18 03/30/18 12:02 16:26 Sodium 123.6 L 121.2 L Potassium Chloride Carbon Dioxide Anion Gap BUN Creatinine Est GFR ( Amer) Est GFR (Non-Af Amer) Glucose Calcium TSH Impressions: Head CT 03/29/18 11:30 IMPRESSION: MILD CHRONIC CHANGES OF ATROPHY AND MICROVASCULAR ISCHEMIA. NO ACUTE PROCESS. EVIDENCE OF ACUTE STROKE: NO. Chest X-Ray 03/29/18 12:20 IMPRESSION: Old sternotomy for CABG. Mild cardiomegaly. No acute infiltrates Assessment & Plan - Diagnosis (1) Acute hyponatremia Is this a current diagnosis for this admission?: Yes Plan: Patient's serum sodium will be supported by IV normal saline as well as initiation of an oral diet with supplemental oral sodium bicarbonate as required. (2) Acute metabolic encephalopathy Is this a current diagnosis for this admission?: Yes Plan: Patient's acute mental status changes of lethargy and weakness most likely due to her hyponatremia. The symptoms have resolved quickly with repletion of her serum sodium. (3) Paroxysmal atrial fibrillation Is this a current diagnosis for this admission?: Yes Plan: Patient will be continued on her prehospital antiarrhythmic, anticoagulation and rate control medications throughout her hospital course and at the time of discharge unless changes to the regimen are required. (4) Diabetes mellitus type 2 in obese Is this a current diagnosis for this admission?: Yes Plan: Patient will be continued on her prehospital oral hypoglycemic medication with supplemental sliding scale insulin given based on before meals and at bedtime blood sugars. Hemoglobin A1c will be evaluated. - Time Time Spent with patient: 15-24 minutes Medications reviewed and adjusted accordingly: Yes Anticipated discharge: Home
[2018-03-31] MEDS: LORAZEPAM 1 MG TABLET PO PRN ×2 (01:47→21:26)
[2018-03-31 05:47] LABS: HEMATOCRIT 33.8 % (36.0-47.0); HEMOGLOBIN 11.8 g/dL (12.0-15.5); MEAN CORPUSCULAR HEMOGLOBIN 29.6 pg (27.0-33.4); MEAN CORPUSCULAR VOLUME 85 fl (80-97); PLATELET COUNT 262 10^3/uL (150-450); RED BLOOD COUNT 3.98 10^6/uL (3.72-5.28); RED CELL DISTRIBUTION WIDTH 14.4 % (11.5-14.0); WHITE BLOOD COUNT 7.5 10^3/uL (4.0-10.5)
[2018-03-31 06:16] LABS: ANION GAP 10 (5-19); BLOOD UREA NITROGEN 10 mg/dL (7-20); CALCIUM 8.4 mg/dL (8.4-10.2); CARBON DIOXIDE 29 mmol/L (22-30); CHLORIDE 88 mmol/L (98-107); GLUCOSE 103 mg/dL (75-110); POTASSIUM 3.5 mmol/L (3.6-5.0); SODIUM 127.1 mmol/L (137-145)
[2018-03-31] MEDS: ASPIRIN 81 MG TABLET, ENT COATED PO SCH (09:22)
[2018-03-31] MEDS: APIXABAN 5 MG TABLET PO SCH ×2 (09:22→17:00)
[2018-03-31] MEDS: MULTIVITAMIN TABLET PO SCH (09:22)
[2018-03-31] MEDS: TAMSULOSIN HCL 0.4 MG CAP.SR.24H PO SCH (09:22)
[2018-03-31] MEDS: SODIUM BICARBONATE 650 MG TABLET PO SCH ×3 (09:22→17:00)
[2018-03-31] MEDS: METOPROLOL SUCCINATE 50 MG TAB.SR.24H PO SCH (09:23)
[2018-03-31] MEDS: GLIMEPIRIDE 4 MG TABLET PO SCH (11:17)
[2018-03-31] MEDS: TORSEMIDE 20 MG TABLET PO SCH (11:17)
[2018-03-31] MEDS: CHOLECALCIFEROL (D3) 1,000 UNIT TABLET PO SCH (11:17)
[2018-03-31] MEDS: DILTIAZEM HCL 240 MG CAPSULE.CR PO SCH (11:17)
[2018-03-31] MEDS ORDERED: POTASSIUM CHLORIDE 10 MEQ CAPSULE.ER PO ONE (15:50)
--- NOTE | 2018-03-31 17:42 | PDOC DISCHARGE SUMMARY ---
General - Admit/Disc Date/PCP Admission Date/Primary Care Provider: 03/29/18 13:49 BEBE STEEN NP Discharge Date: 03/31/18 - Discharge Diagnosis (1) Acute hyponatremia Is this a current diagnosis for this admission?: Yes Summary: Patient's serum sodium will be supported by IV normal saline as well as initiation of an oral diet with supplemental oral sodium bicarbonate as required. (2) Acute metabolic encephalopathy Is this a current diagnosis for this admission?: Yes Summary: Patient's acute mental status changes of lethargy and weakness most likely due to her hyponatremia. The symptoms have resolved quickly with repletion of her serum sodium. (3) Paroxysmal atrial fibrillation Is this a current diagnosis for this admission?: Yes Summary: Patient will be continued on her prehospital antiarrhythmic, anticoagulation and rate control medications throughout her hospital course and at the time of discharge unless changes to the regimen are required. (4) Diabetes mellitus type 2 in obese Is this a current diagnosis for this admission?: Yes Summary: Patient will be continued on her prehospital oral hypoglycemic medication with supplemental sliding scale insulin given based on before meals and at bedtime blood sugars. Hemoglobin A1c was 5.7. - Additional Information Resuscitation Status: Full Code Discharge Diet: Regular Discharge Activity: Activity As Tolerated, Walk Frequently Prescriptions: Apixaban [Eliquis 5 mg Tablet] 5 mg PO BID 30 Days #60 tablet Diltiazem HCl [Cardizem Cd 240 mg Capsule.cr] 240 mg PO DAILY 30 Days #30 capsule.cr Metoprolol Succinate 200 mg PO QHS 30 Days #30 tab.er.24h Sodium Bicarbonate [Sodium Bicarbonate 650 mg Tablet] 1,300 mg PO PC 10 Days # 60 tablet Torsemide [Demadex 20 mg Tablet] 10 mg PO DAILY 10 Days #5 tablet Home Medications: Aspirin [Ecotrin] 81 mg PO DAILY 03/29/18 Cholecalciferol (Vitamin D3) [Vitamin D3 1000 Unit Tablet] 1,000 unit PO DAILY 03/29/18 Citalopram Hydrobromide [Celexa] 1 tab PO DAILY 03/29/18 Esomeprazole Magnesium [Nexium 24Hr] 20 mg PO DAILY 03/29/18 Garlic 1,000 mg PO DAILY 03/29/18 Glimepiride [Amaryl 4 mg Tablet] 4 mg PO DAILY 03/29/18 Imipramine HCl [Tofranil 25 mg Tablet] 25 mg PO DAILY 03/29/18 Levothyroxine Sodium 75 mcg PO DAILY 03/29/18 Lorazepam [Ativan] 1 mg PO BIDP PRN 03/29/18 Multivitamin [Daily Multiple Vitamin] 1 tab PO DAILY 03/29/18 Pravastatin Sodium [Pravachol] 40 mg PO DAILY 03/29/18 Tamsulosin HCl [Flomax] 0.4 mg PO DAILY 03/29/18 Apixaban [Eliquis 5 mg Tablet] 5 mg PO BID 30 Days #60 tablet 03/31/18 Diltiazem HCl [Cardizem Cd 240 mg Capsule.cr] 240 mg PO DAILY 30 Days #30 capsule.cr 03/31/18 Metoprolol Succinate 200 mg PO QHS 30 Days #30 tab.er.24h 03/31/18 Sodium Bicarbonate [Sodium Bicarbonate 650 mg Tablet] 1,300 mg PO PC 10 Days # 60 tablet 03/31/18 Torsemide [Demadex 20 mg Tablet] 10 mg PO DAILY 10 Days #5 tablet 03/31/18 History of Present Illness Patient complains of: Lethargy History of Present Illness: CHRISTELLE RIBERA is a 78 year old female who was brought to the emergency room by her family due to weakness and confusion. Dayanna noticed that over the 3-4 days prior to her admission she was becoming progressively weak and eventually was unable to stand. She has not been eating or drinking well and she may have had some diarrhea during the several days prior to her admission. In the emergency room she was disoriented and unable to participate in her medical care. In the ER her evaluation was remarkable for a severe hyponatremia with a sodium of 113.7. She was noted to have an unremarkable head CT scan showing no acute changes and she was subsequently admitted to the ICU for further evaluation and treatment. Hospital Course Hospital Course: 03/30/2018: Patient is doing much better today she is awake and much more alert she is talking and hungry and would like to have more food to eat. She is having no difficulty with elimination and she is able to identify persons in the room with only minimal confusion according to the report of her daughter. Daughter feels that her mother is dramatically improved back to 85 or 90% of her baseline status. Her serum sodium has increased to greater than 120. 03/31/2018: Christelle is feeling very well today she is in good spirits and is looking forward to going home. Her is present and he is eager to have her return home as soon as possible. They will be getting home health care assistance for the first time and this will no doubt improve her home care and smooth the return to home process. Because of her excellent progress is felt that she could be discharged home in improved and stable condition with a serum sodium of greater than 127. Physical Exam Vital Signs: Temp Pulse Resp BP Pulse Ox 98.2 F 61 18 114/52 L 96 03/31/18 16:45 03/31/18 16:45 03/31/18 16:45 03/31/18 16:45 03/31/18 16:45 Intake & Output 03/29/18 03/30/18 03/31/18 23:59 23:59 23:59 Intake Total 100 2016 318 Output Total 1200 4250 1080 Balance -1100 -2234 -762 Weight 87.9 kg 87.9 kg 87.9 kg General appearance: PRESENT: no acute distress, cooperative, obese Head exam: PRESENT: atraumatic, normocephalic Eye exam: PRESENT: conjunctiva pink, EOMI Ear exam: PRESENT: normal external ear exam Mouth exam: PRESENT: neck supple Respiratory exam: PRESENT: clear to auscultation elio, symmetrical, unlabored Cardiovascular exam: PRESENT: irregular rhythm - Irregularly irregular rate and rhythm. ABSENT: clicks, gallop, rubs Vascular exam: PRESENT: normal capillary refill. 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 ABSENT: joint swelling, pedal edema Musculoskeletal exam: ABSENT: deformity, dislocation Neurological exam: PRESENT: alert, oriented to person, oriented to place, oriented to time, oriented to situation, CN II-XII grossly intact. ABSENT: motor sensory deficit Psychiatric exam: PRESENT: appropriate affect, normal mood Skin exam: PRESENT: dry, intact, warm Results Laboratory Results: 03/31/18 04:50 03/31/18 04:50 03/31/18 03/31/18 04:50 04:50 WBC 7.5 RBC 3.98 Hgb 11.8 L Hct 33.8 L MCV 85 MCH 29.6 MCHC 35.0 RDW 14.4 H Plt Count 262 Sodium 127.1 L Potassium 3.5 L Chloride 88 L Carbon Dioxide 29 Anion Gap 10 BUN 10 Creatinine 0.71 Est GFR ( Amer) > 60 Est GFR (Non-Af Amer) > 60 Glucose 103 Calcium 8.4 Magnesium 2.0 03/29/18 15:01 Catheterized Urine Urine Culture - Final NO GROWTH 2 DAYS Impressions: Head CT 03/29/18 11:30 IMPRESSION: MILD CHRONIC CHANGES OF ATROPHY AND MICROVASCULAR ISCHEMIA. NO ACUTE PROCESS. EVIDENCE OF ACUTE STROKE: NO. Chest X-Ray 03/29/18 12:20 IMPRESSION: Old sternotomy for CABG. Mild cardiomegaly. No acute infiltrates Qualifiers - * PATIENT BEING DISCHARGED WITH ANY OF THE FOLLOWING DIAGNOSIS: No Plan Discharge Plan: Discharged to home in improved and stable condition with home health for home health nursing, physical therapy and personal aide/homemaker services Time Spent: Greater than 30 Minutes
[2018-03-31] MEDS: ATORVASTATIN CALCIUM 10 MG TABLET PO SCH (21:26)
[2018-04-01] MEDS ORDERED: LANSOPRAZOLE 15 MG TAB.RAP.DR PO SCH (06:00)
[2018-04-01] MEDS ORDERED: LEVOTHYROXINE SODIUM 0.075 MG TABLET PO SCH (06:00)
[2018-04-01] MEDS ORDERED: IMIPRAMINE HCL 25 MG TABLET PO SCH (10:00)
[2018-04-01] MEDS ORDERED: CITALOPRAM HYDROBROMIDE 20 MG TABLET PO SCH (10:00)
[2018-04-01] MEDS: TAMSULOSIN HCL 0.4 MG CAP.SR.24H PO SCH (11:40)
[2018-04-01] MEDS: APIXABAN 5 MG TABLET PO SCH (11:40)
[2018-04-01] MEDS: TORSEMIDE 20 MG TABLET PO SCH (11:40)
[2018-04-01] MEDS: ASPIRIN 81 MG TABLET, ENT COATED PO SCH (11:40)
[2018-04-01] MEDS: MULTIVITAMIN TABLET PO SCH (11:40)
[2018-04-01] MEDS: SODIUM BICARBONATE 650 MG TABLET PO SCH ×2 (11:41→14:52)
[2018-04-01] MEDS: GLIMEPIRIDE 4 MG TABLET PO SCH (11:41)
[2018-04-01] MEDS: CHOLECALCIFEROL (D3) 1,000 UNIT TABLET PO SCH (11:41)
[2018-04-01] MEDS: METOPROLOL SUCCINATE 50 MG TAB.SR.24H PO SCH ×2 (11:41→11:54)
[2018-04-01] MEDS: DILTIAZEM HCL 240 MG CAPSULE.CR PO SCH ×2 (11:42→11:50)
[2018-04-01 11:48] VITALS: BP 137/52
[2018-04-01] MEDS ORDERED: SCOPOLAMINE HYDROBROMIDE 1.5 MG PATCH.TD72 TD SCH (12:30)
--- NOTE | 2018-04-01 13:06 | PDOC PROGRESS REPORT ---
Subjective Progress Note for:: 04/01/18 Subjective:: CHRISTELLE RIBERA is a 78 year old female who was brought to the emergency room by her family due to weakness and confusion. Dayanna noticed that over the 3-4 days prior to her admission she was becoming progressively weak and eventually was unable to stand. She has not been eating or drinking well and she may have had some diarrhea during the several days prior to her admission. In the emergency room she was disoriented and unable to participate in her medical care. In the ER her evaluation was remarkable for a severe hyponatremia with a sodium of 113.7. She was noted to have an unremarkable head CT scan showing no acute changes and she was subsequently admitted to the ICU for further evaluation and treatment. 03/30/2018: Patient is doing much better today she is awake and much more alert she is talking and hungry and would like to have more food to eat. She is having no difficulty with elimination and she is able to identify persons in the room with only minimal confusion according to the report of her daughter. Daughter feels that her mother is dramatically improved back to 85 or 90% of her baseline status. Her serum sodium has increased to greater than 120. 03/31/2018: Christelle is feeling very well today she is in good spirits and is looking forward to going home. Her is present and he is eager to have her return home as soon as possible. They will be getting home health care assistance for the first time and this will no doubt improve her home care and smooth the return to home process. Because of her excellent progress is felt that she could be discharged home in improved and stable condition with a serum sodium of greater than 127. 04/01/2018: Christelle is feeling a little bit dizzy today. She states that she feels like she is spinning when she turns her head to either side. This in turn makes her feel anxious and she is worried that she is not getting better and that something bad is going to happen to her. On examination I found a significant lateral nystagmus which is not previously been present. I reassured her that she has a minor problem of acute labyrinthitis and will be treated with a scopolamine patch applied once every 3 days for 2 weeks. I have reassured her that her overall progress will not be impeded by this minor complication at that she should expect and have campos that she will return to her previous level of function. Reason For Visit: SEVERE HYPONATREMIA Physical Exam Vital Signs: Temp Pulse Resp BP Pulse Ox 98.3 F 52 L 12 137/52 H 95 04/01/18 11:42 04/01/18 11:42 04/01/18 11:42 04/01/18 11:42 04/01/18 11:42 Intake & Output 03/30/18 03/31/18 04/01/18 23:59 23:59 23:59 Intake Total 2015 984 Output Total 4250 1080 Balance -2234 -96 Weight 87.9 kg 87.9 kg 86.6 kg General appearance: PRESENT: cooperative, mild distress - Secondary to vertigo and anxiety. Head exam: PRESENT: atraumatic, normocephalic Eye exam: PRESENT: conjunctiva pink, nystagmus - Lateral nystagmus is noted.. ABSENT: scleral icterus Ear exam: PRESENT: normal external ear exam. ABSENT: bleeding, drainage Mouth exam: PRESENT: neck supple, other - Oral mucosa is dry and intact, dentition is in poor repair Teeth exam: PRESENT: poor dentation Neck exam: ABSENT: JVD, tracheal deviation Respiratory exam: PRESENT: clear to auscultation elio, symmetrical, unlabored Cardiovascular exam: PRESENT: RRR. ABSENT: clicks, gallop, rubs Vascular exam: PRESENT: normal capillary refill. 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 ABSENT: deformity, dislocation Neurological exam: PRESENT: alert, oriented to person, oriented to place, oriented to time, oriented to situation Psychiatric exam: PRESENT: agitated, anxious, depressed Skin exam: PRESENT: dry, intact, warm Results Laboratory Results: 03/31/18 04:50 03/31/18 04:50 03/29/18 15:01 Catheterized Urine Urine Culture - Final NO GROWTH 2 DAYS Impressions: Head CT 03/29/18 11:30 IMPRESSION: MILD CHRONIC CHANGES OF ATROPHY AND MICROVASCULAR ISCHEMIA. NO ACUTE PROCESS. EVIDENCE OF ACUTE STROKE: NO. Chest X-Ray 03/29/18 12:20 IMPRESSION: Old sternotomy for CABG. Mild cardiomegaly. No acute infiltrates Assessment & Plan - Diagnosis (1) Acute hyponatremia Is this a current diagnosis for this admission?: Yes Plan: Patient's serum sodium will be supported by IV normal saline as well as initiation of an oral diet with supplemental oral sodium bicarbonate as required. (2) Acute metabolic encephalopathy Is this a current diagnosis for this admission?: Yes Plan: Patient's acute mental status changes of lethargy and weakness most likely due to her hyponatremia. The symptoms have resolved quickly with repletion of her serum sodium. (3) Acute labyrinthitis Qualifiers: Laterality: unspecified laterality Qualified Code(s): H83.09 - Labyrinthitis, unspecified ear Is this a current diagnosis for this admission?: Yes Plan: Patient will be treated with a scopolamine patch applied every 3 days for the next 15 days (total of 5 patches). (4) Paroxysmal atrial fibrillation Is this a current diagnosis for this admission?: Yes Plan: Patient will be continued on her prehospital antiarrhythmic, anticoagulation and rate control medications throughout her hospital course and at the time of discharge unless changes to the regimen are required. (5) Diabetes mellitus type 2 in obese Is this a current diagnosis for this admission?: Yes Plan: Patient will be continued on her prehospital oral hypoglycemic medication with supplemental sliding scale insulin given based on before meals and at bedtime blood sugars. Hemoglobin A1c will be evaluated. - Time Time Spent with patient: 15-24 minutes Medications reviewed and adjusted accordingly: Yes Anticipated discharge: SNF Within: when bed available
[2018-04-01] MEDS ORDERED: METOPROLOL SUCCINATE 50 MG TAB.SR.24H PO SCH (22:00)
== END 2018-04-01 16:44 | DRG 640 ==
LOC: ER 11:25 → EH 13:49 → ICU 22:48 → 4S 03-30 18:07 → UNDODISIN 03-31 18:34
PROVIDERS: ADMIT Internal Medicine; ATTEND Internal Medicine
DX: E87.1 Hypo-osmolality and hyponatremia (principal); G93.41 Metabolic encephalopathy; I25.10 Atherosclerotic heart disease of native coronary artery without angina pectoris; I48.0 Paroxysmal atrial fibrillation; H83.09 Labyrinthitis, unspecified ear; H55.00 Unspecified nystagmus; I10 Essential (primary) hypertension; H91.90 Unspecified hearing loss, unspecified ear; E03.9 Hypothyroidism, unspecified; Z89.611 Acquired absence of right leg above knee; Z90.5 Acquired absence of kidney; Z95.1 Presence of aortocoronary bypass graft; Z85.830 Personal history of malignant neoplasm of bone; I25.2 Old myocardial infarction; Z79.82 Long term (current) use of aspirin; Z79.899 Other long term (current) drug therapy; Z79.84 Long term (current) use of oral hypoglycemic drugs; Z99.3 Dependence on wheelchair; Z79.02 Long term (current) use of antithrombotics/antiplatelets; E66.9 Obesity, unspecified
CPT/HCPCS: 36415; 70450; 71045; 80048; 80053; 81001; 82140; 82550; 82553; 82570; 82803; 82962; 83036; 83735; 83930; 83935; 84295; 84300; 84443; 84484; 85025; 85027; 87086; 93005; 93010; 99291; J1815; J1940; J2060; J3480; J3490; J7030